=== PATIENT | female | born 1995 ===

== ENCOUNTER 2016-07-23 07:49 | Emergency (ER) | payer OTHER ==
[2016-07-23 08:08] VITALS: BP 115/80
--- NOTE | 2016-07-23 08:18 | UC ---
Respiratory Complaint HPI - HPI Summary HPI Summary: PT HERE WITH SEVERAL COMPLAINTS. 1. RIGHT EAR PAIN SINCE LAST NIGHT. NO HEARING LOSS OR DRAINAGE. NO FEVER, N/V/ D. HAS HAD URI SX FOR PAST WEEK OR SO - COUGH, CONGESTION, ST. 2. RIGHT EYE RED WITH MUCOUSY DISCHARGE SINCE LAST NIGHT. NO VISUAL CHANGES. NO GUPTA. NO PAIN WITH EOM OR FB SENSATION. 3. RETURNED FROM [facility] ABOUT A WEEK AGO. HAS HAD TROUBLE WITH DIARRHEA THAT SEEMS TO HAVE MOSTLY RESOLVED BUT NOW IS STRUGGLING WITH CONSTIPATION. NO BLOOD PER RECTUM. 4. STRUGGLING WITH JETLAG SINCE RETURN. - History of Current Complaint Chief Complaint: UCGeneralIllness Stated Complaint: SINUS COMPLAINT Time Seen by Provider: 07/23/16 08:00 Hx Obtained From: Patient Hx Last Menstrual Period: 07/07/16 Onset/Duration: Gradual Onset, Lasting Hours, Still Present Timing: Constant Severity Initially: Moderate Severity Currently: Moderate Pain Intensity: 6 Pain Scale Used: 0-10 Numeric Character: Cough: Nonproductive Aggravating Factors: Nothing Alleviating Factors: Nothing Associated Signs And Symptoms: Positive: URI, Nasal Congestion. Negative: Dyspnea, Fever, Chills, Pleuritic Chest Pain, Wheezing, Hemoptysis, Dizziness, Calf Pain, Calf Swelling, Edema, Hoarseness, Sinus Discomfort - Allergies/Home Medications Allergies/Adverse Reactions: Allergies Allergy/AdvReac Type Severity Reaction Status Date / Time No Known Allergies Allergy Verified 07/23/16 07:59 Home Medications: Home Medications Fluticasone NASAL SPRAY 50MCG* [Flonase NASAL SPRAY 50MCG*] 1 spray 07/23/16 [ History] PMH/Surg Hx/FS Hx/Imm Hx Previously Healthy: Yes Endocrine History Of: Denies: Diabetes, Thyroid Disease, Hyperthyroidism, Hypothyroidism, Dyslipidemia Cardiovascular History Of: Denies: Cardiac Disorders, Hypertension, Pacemaker/ICD, Myocardial Infarction , Congestive Heart Failure, Atrial Fibrillation, Deep Vein Thrombosis, Bleeding Disorders Respiratory History Of: Denies: COPD, Asthma, Bronchitis, Pneumonia, Pulmonary Embolism GI/ History Of: Denies: Gastroesophageal Reflux, Ulcer, Gastrointestinal Bleed, Gall Bladder Disease, Kidney Stones, Diverticulitis, Renal Disease, Urosepsis Neurological History Of: Denies: TIA, CVA, Dementia, Seizures, Migraine Psychological History Of: Denies: Anxiety, Depression, Bipolar Disorder, Schizophrenia, Post Traumatic Stress Disorder Cancer History Of: Denies: Lung Cancer, Colorectal Cancer, Breast Cancer, Prostate Cancer, Cervical Cancer Other History Of: Negative For: HIV, Hepatitis B, Hepatitis C, Anticoagulant Therapy - Surgical History Surgical History: None Surgery Procedure, Year, and Place: mucocele removed from lower lip 2013 - Family History Known Family History: Positive: Hypertension, Diabetes, Respiratory Disease - asthma Negative: Cardiac Disease - Social History Alcohol Use: Rare Substance Use Type: None Smoking Status (MU): Former Smoker Have You Smoked in the Last Year: No - Immunization History Most Recent Influenza Vaccination: doesn't get Review of Systems Constitutional: Negative Eyes: Drainage, Eye Redness ENT: Sore Throat, Ear Ache, Nasal Discharge Respiratory: Cough Cardiovascular: Negative Gastrointestinal: Abdominal Pain, Diarrhea All Other Systems Reviewed And Are Negative: Yes Physical Exam Triage Information Reviewed: Yes Appearance: Well-Appearing, No Pain Distress, Well-Nourished Vital Signs: Initial Vital Signs Temp 98.2 F 07/23/16 08:01 Pulse 87 07/23/16 08:01 Resp 14 07/23/16 08:01 BP 115/80 07/23/16 08:01 Pulse Ox 100 07/23/16 08:01 Vital Signs Reviewed: Yes Eyes: Positive: Conjunctiva Inflamed - RIGHT EYE. Negative: Discharge ENT: Positive: Hearing grossly normal, Pharynx normal, Other: - LEFT TM NORMAL. RIGHT TM DULL, ERYTHEMATOUS Neck: Positive: Supple, Nontender, No Lymphadenopathy Respiratory Exam: Normal Cardiovascular Exam: Normal Abdomen Description: Positive: Nontender, Soft. Negative: Distended, Guarding Bowel Sounds: Positive: Present Musculoskeletal: Positive: No Edema Neurological: Positive: Alert Psychological: Positive: Age Appropriate Behavior Skin: Negative: rashes UC Diagnostic Evaluation - Laboratory O2 Sat by Pulse Oximetry: 100 Respiratory Course/Dx - Differential Dx/Diagnosis Provider Diagnoses: 1. RIGHT AOM. 2. RIGHT EYE CONJUNCTIVITIS. 3. DIARRHEA. 4. JETLAG Discharge - Discharge Plan Condition: Stable Disposition: HOME Prescriptions: Amoxicillin CAP* 1,000 mg PO Q12H #28 cap Ciprofloxacin 0.3% OPTH.CAT* [Cipro 0.3% Opth*] 1 drop RIGHT EYE Q4H #1 btl Patient Education Materials: Traveler's Diarrhea (ED), Otitis Media (ED), Insomnia (ED), Conjunctivitis (ED) Referrals: [facility] TORI Das [Medical Doctor] - If Needed Additional Instructions: TAKE MIRALAX DAILY TO HELP WITH YOUR INFREQUENT BOWEL MOVEMENTS. IF YOUR DIARRHEA RECURS AND IS PERSISTENT BRING IN A SAMPLE FOR TESTING. OTC SLEEP AIDS TO HELP WITH DIFFICULTY SLEEPING. MAINTAIN GOOD SLEEP HYGIENE - WAKE UP AND GO TO BED AT SAME TIME EVERY DAY. AVOID CAFFEINE LATE AT NIGHT. DO NOT READ OR WATCH TV IN BED.
== END 2016-07-23 08:50 | disposition home or self-care (01) ==
LOC: UCEAST 07:49
DX: H66.91 Otitis media, unspecified, right ear (principal); H10.31 Unspecified acute conjunctivitis, right eye; R19.7 Diarrhea, unspecified; G47.25 Circadian rhythm sleep disorder, jet lag type; Z87.891 Personal history of nicotine dependence
CPT/HCPCS: 99212; G0463

== ENCOUNTER 2016-10-01 11:29 | Emergency (ER) | payer OTHER ==
[2016-10-01 11:47] VITALS: BP 115/73
--- NOTE | 2016-10-01 12:05 | UC ---
Complaint Female HPI - HPI Summary HPI Summary: Patient was treated for a UTI last month, has had some itching and buring with urination, noticed a odor and discharge, thinks she m ay have another UTI. - History Of Current Complaint Chief Complaint: UCGU Stated Complaint: URINARY ISSUE Time Seen by Provider: 10/01/16 11:49 Hx Obtained From: Patient Hx Last Menstrual Period: 09/26/16 Onset/Duration: Sudden Onset, Lasting Weeks Timing: Constant Severity Initially: Mild Severity Currently: Mild Character: Dull, Burning Aggravating Factor(s): Urination Alleviating Factor(s): Nothing Associated Signs And Symptoms: Positive: Vaginal Discharge - Risk Factors Ectopic Risk Factor: Negative Ovarian Torsion Risk Factor: Negative - Allergies/Home Medications Allergies/Adverse Reactions: Allergies Allergy/AdvReac Type Severity Reaction Status Date / Time No Known Allergies Allergy Verified 07/23/16 07:59 Home Medications: Home Medications Multiple Vitamin [Multi Vitamin] 10/01/16 [History] PMH/Surg Hx/FS Hx/Imm Hx Previously Healthy: Yes Endocrine History Of: Denies: Diabetes, Thyroid Disease, Hyperthyroidism, Hypothyroidism, Dyslipidemia Cardiovascular History Of: Denies: Cardiac Disorders, Hypertension, Pacemaker/ICD, Myocardial Infarction , Congestive Heart Failure, Atrial Fibrillation, Deep Vein Thrombosis, Bleeding Disorders Respiratory History Of: Denies: COPD, Asthma, Bronchitis, Pneumonia, Pulmonary Embolism GI/ History Of: Denies: Gastroesophageal Reflux, Ulcer, Gastrointestinal Bleed, Gall Bladder Disease, Kidney Stones, Diverticulitis, Renal Disease, Urosepsis Neurological History Of: Denies: TIA, CVA, Dementia, Seizures, Migraine Psychological History Of: Denies: Anxiety, Depression, Bipolar Disorder, Schizophrenia, Post Traumatic Stress Disorder Cancer History Of: Denies: Lung Cancer, Colorectal Cancer, Breast Cancer, Prostate Cancer, Cervical Cancer Other History Of: Negative For: HIV, Hepatitis B, Hepatitis C, Anticoagulant Therapy - Surgical History Surgical History: None Surgery Procedure, Year, and Place: mucocele removed from lower lip 2013 - Family History Known Family History: Positive: Hypertension, Diabetes, Respiratory Disease - asthma Negative: Cardiac Disease - Social History Alcohol Use: Rare Substance Use Type: None Smoking Status (MU): Former Smoker Have You Smoked in the Last Year: No - Immunization History Most Recent Influenza Vaccination: doesn't get Review of Systems Constitutional: Negative Skin: Negative Eyes: Negative ENT: Negative Respiratory: Negative Cardiovascular: Negative Gastrointestinal: Negative Genitourinary: Dysuria, Frequency, Other - vaginal discharge Motor: Negative Neurovascular: Negative Musculoskeletal: Negative Neurological: Negative Psychological: Negative All Other Systems Reviewed And Are Negative: Yes Physical Exam Triage Information Reviewed: Yes Appearance: Well-Appearing, Well-Nourished, Pain Distress Vital Signs: Initial Vital Signs Temp 98.2 F 10/01/16 11:43 Pulse 75 10/01/16 11:43 Resp 18 10/01/16 11:43 BP 115/73 10/01/16 11:43 Pulse Ox 97 10/01/16 11:43 Vital Signs Reviewed: Yes Eye Exam: Normal Eyes: Positive: Conjunctiva Clear ENT Exam: Normal ENT: Positive: Normal ENT inspection, Hearing grossly normal, Pharynx normal, TMs normal Dental Exam: Normal Neck exam: Normal Neck: Positive: Supple, Nontender, No Lymphadenopathy Respiratory Exam: Normal Respiratory: Positive: Chest non-tender, Lungs clear, Normal breath sounds Cardiovascular Exam: Normal Cardiovascular: Positive: RRR, No Murmur, Pulses Normal Abdominal Exam: Normal Abdomen Description: Positive: Nontender, No Organomegaly, Soft Bowel Sounds: Positive: Present Musculoskeletal Exam: Normal Musculoskeletal: Positive: Strength Intact, ROM Intact, No Edema Neurological Exam: Normal Neurological: Positive: Alert, Muscle Tone Normal Psychological Exam: Normal Skin Exam: Normal Complaint Female Dx - Course Course Of Treatment: hx obtained, exam performed, Ua positive for leuks and nitrates, meds reviewed, treated for UTI and veronica vaginitis - Differential Dx/Diagnosis Differential Diagnosis/HQI/PQRI: Sexually Transmitted Disease, Ureteral Stone, Urinary Tract Infection, Other - vaginitis Provider Diagnoses: veronica vagintitis. UTI Discharge - Discharge Plan Condition: Stable Disposition: HOME Patient Education Materials: Urinary Tract Infection in Women (ED), Vulvovaginal Candidiasis (ED) Additional Instructions: Take the medication as prescribed, Increase fluid intake and find a good probiotic to take for the next few weeks due to the frequency of antibiotic use. You can pick one up at any pharmacy over the counter.
== END 2016-10-01 12:20 | disposition home or self-care (01) ==
LOC: UCEAST 11:29
DX: B37.3 Candidiasis of vulva and vagina (principal); N39.0 Urinary tract infection, site not specified; Z87.440 Personal history of urinary (tract) infections; Z87.891 Personal history of nicotine dependence
CPT/HCPCS: 81003; 87077; 87086; 87186; 99212; G0463